=== PATIENT | female | born 1995 | race Caucasian/White ===

== ENCOUNTER 2017-04-25 09:36 | Emergency (ER) | payer BC, MEDICAID ==
[~2017-04-25] VITALS: Ht 165.1 cm; Wt 64.4 kg
[~2017-04-25 09:36] MED LIST: ACET-2047 PO; CIPR500T4 PO; IBUP-1542 PO
[2017-04-25 09:38] VITALS: Ht 165.1 cm; Wt 64.4 kg
[2017-04-25] MEDS ORDERED: KETOROLAC 30 MG INJ IM STA (09:54)
[2017-04-25] MEDS ORDERED: ONDANSETRON (ODT) 4 MG TAB ODT STA (09:54)
--- NOTE | 2017-04-25 09:57 | ERD ---
ER Documentation Chief Complaint Chief Complaint pt had abd pain last night and today it radiates to the back, vomitting HPI 21-year-old female comes in with left-sided flank pain with nausea vomiting that started last night. This patient states that she had some abdominal pain in the lower abdomen now is in her back, she reports 2 episodes of nonbloody nonbilious emesis. She attempted to take ibuprofen but she had vomited the medication. Pain is achy, localized, and no change with movement. She denies any trauma, saddle anesthesia loss of bowel bladder function. The patient denies fevers or chills. ROS All systems reviewed and are negative except as per history of present illness. Medications Home Meds Active Scripts Tamsulosin Hcl* (Flomax*) 0.4 Mg Cap.er.24h, 0.4 MG PO BID, #30 CAP Prov:GERALDINE HOGAN PA-C 04/25/17 Ibuprofen* (Motrin*) 800 Mg Tab, 800 MG PO Q6, #30 TAB Prov:GERALDINE HOGAN PA-C 04/25/17 Hydrocodone/Acetaminophen ([place] 5-325 Tablet) 1 Each Tablet, 1 TAB PO Q6H Y for PAIN, #7 TAB Prov:GERALDINE HOGAN PA-C 04/25/17 Acetaminophen* (Acetaminophen*) 650 Mg Tablet, 650 MG PO Q4H Y for PAIN AND OR ELEVATED TEMP, #15 TAB Prov:TONYAMEDARDO 11/26/14 Ibuprofen* (Motrin*) 600 Mg Tab, 600 MG PO Q6H Y for PAIN, #15 TAB Prov:CHO,MEDARDO 11/26/14 Ciprofloxacin Hcl* (Ciprofloxacin Hcl*) 500 Mg Tablet, 500 MG PO BID for 7 Days , TAB Prov:CHO,MEDARDO 11/26/14 Allergies Allergies: Coded Allergies: No Known Allergy (Unverified , 11/26/14) PMhx/Soc History of Surgery: No Anesthesia Reaction: No Hx Neurological Disorder: No Hx Respiratory Disorders: No Hx Cardiac Disorders: No Hx Psychiatric Problems: No Hx Miscellaneous Medical Probl: No Hx Alcohol Use: No Hx Substance Use: No Hx Tobacco Use: No Physical Exam Vitals Vital Signs Date Time Temp Pulse Resp B/P Pulse Ox O2 Delivery O2 Flow Rate FiO2 04/25/17 09:38 98.8 56 19 137/62 99 Physical Exam General: Well-developed, well-nourished. The patient appears in no acute distress. HEENT: Head is normocephalic, atraumatic. No scleral icterus. Neck: Supple. Nontender. Lungs: Clear to auscultation. Normal air movement. Heart: Regular rate and rhythm. S1 and S2 are normal. No murmurs, gallops, or rubs. Abdomen: Soft, nontender, nondistended. Bowel sounds are normoactive. Back: No midline tenderness, no rashes, no CVA tenderness. Extremities: No clubbing or cyanosis. Normal pulses. Moving extremities x 4. No weakness. Neurologic: Alert and oriented 3. No focal deficits. Skin: Normal turgor. No rash or lesions. Result Diagram: 04/25/17 1055 04/25/17 1055 Results 24 hrs Laboratory Tests Test 04/25/17 10:00 04/25/17 10:55 Urine Color YELLOW Urine Clarity SLIGHTLY CLOUDY Urine pH 5.0 Urine Specific [place] 1.021 Urine Ketones NEGATIVEmg/dL Urine Nitrite NEGATIVEmg/dL Urine Bilirubin NEGATIVEmg/dL Urine Urobilinogen NEGATIVEmg/dL Urine Leukocyte Esterase NEGATIVELeu/ul Urine Microscopic RBC 147/HPF Urine Microscopic WBC 5/HPF Urine Squamous Epithelial Cells MODERATE/HPF Urine Mucus MANY/HPF Urine Hemoglobin 3+mg/dL Urine Glucose NEGATIVEmg/dL Urine Total Protein 1+mg/dl Urine Test NEGATIVE White Blood Count 10.110^3/ul Red Blood Count 4.2510^6/ul Hemoglobin 13.2g/dl Hematocrit 39.4% Mean Corpuscular Volume 92.7fl Mean Corpuscular Hemoglobin 31.1pg Mean Corpuscular Hemoglobin Concent 33.5g/dl Red Cell Distribution Width 11.8% Platelet Count 55580^3/UL Mean Platelet Volume 10.1fl Neutrophils % 81.6% Lymphocytes % 12.0% Monocytes % 5.7% Eosinophils % 0.2% Basophils % 0.2% Nucleated Red Blood Cells % 0.0/100WBC Neutrophils # 8.310^3/ul Lymphocytes # 1.210^3/ul Monocytes # 0.610^3/ul Eosinophils # 0.010^3/ul Basophils # 0.010^3/ul Nucleated Red Blood Cells # 0.010^3/ul Sodium Level 143mmol/L Potassium Level 4.5mmol/L Chloride Level 105mmol/L Carbon Dioxide Level 27mmol/L Anion Gap 16 Blood Urea Nitrogen 10mg/dl Creatinine 0.68mg/dl Glucose Level 103mg/dl Calcium Level 9.5mg/dl Total Bilirubin 0.5mg/dl Direct Bilirubin 0.00mg/dl Indirect Bilirubin 0.5mg/dl Aspartate Amino Transf (AST/SGOT) 20IU/L Alanine Aminotransferase (ALT/SGPT) 34IU/L Alkaline Phosphatase 53IU/L Total Protein 7.3g/dl Albumin 4.0g/dl Globulin 3.30g/dl Albumin/Globulin Ratio 1.21 Lipase 133U/L Current Medications Medications (Trade) Dose Ordered Sig/Johanne Route PRN Reason Start Time Stop Time Status Last Admin Dose Admin Ondansetron HCl (Zofran Odt) 4 mg ONCE STAT ODT 04/25/17 09:54 04/25/17 09:55 DC 04/25/17 10:11 Ketorolac Tromethamine (Toradol) 30 mg ONCE STAT IM 04/25/17 09:54 04/25/17 09:55 DC 04/25/17 10:10 DIAGNOSTIC IMAGING REPORT Patient: MELISSA COATES : 1995 Age: 21 Sex: F MR #: [id number] DOS: 04/25/17 1203 Ordering MD: GERALDINE HOGAN PA-C Location: [facility] Room/Bed: PROCEDURE: CT ABDOMEN AND PELVIS WITHOUT CONTRAST. CLINICAL INDICATION: Left flank pain TECHNIQUE: CT scan of the abdomen and pelvis without contrast was performed on a multidetector high-resolution CT scanner. The patient was scanned without intravenous contrast. Coronal and sagittal reformatted images were obtained from the axial source images. Images were reviewed on a high-resolution PACS workstation. The total exam CTDI equals 6.8 mGy and the total exam DLP equals 386.4 mGy-cm. One or more of the following dose reduction techniques were used: Automated exposure control. Adjustment of the mA and/or kV according to patient size. Use of iterative reconstruction technique. DICOM images are available COMPARISON: None FINDINGS: CT abdomen: The lung bases are clear. The heart size is within limits. There is no significant pericardial effusion. Hepatic morphology is within normal limits. No gross contour deforming masses. The gallbladder is within normal limits. No evidence of intrahepatic or extrahepatic biliary dilatation. The spleen and pancreas are within normal limits. Both adrenal glands are within normal limits. Both kidneys are normal anatomic position. Punctate 1-2 mm stones are noted within both kidneys. There is borderline left-sided hydronephrosis and there is a small 2 mm stone within the left UVJ. The visualized GI tract demonstrate normal caliber loops of small and large bowel. No evidence of bowel obstruction. The appendix is within normal limits. The unenhanced aorta is unremarkable. No significant retroperitoneal lymphadenopathy. CT pelvis: The bladder is again identified and there is a small 2 mm within the left UVJ. The uterus is mildly prominent, containing fluid. There is a right cystic adnexa measuring 4.5 cm. The visualized osseous structures appears to be within normal limits. IMPRESSION: 1. THERE IS BORDERLINE LEFT-SIDED HYDRONEPHROSIS AND THERE IS A 2 MM STONE WITHIN THE LEFT UVJ. 2. Bilateral nonobstructing 1-2 mm nephrolithiasis. 3. No evidence of bowel obstruction. The appendix is within normal limits. 4. Prominent uterus, containing fluid within the endometrial canal and 4.5 cm right cystic adnexa, probably physiologic within normal limits. RPTAT: EE Physician Eldon Date Time Electronically viewed and signed by Physician Eldon on 04/25/2017 12:46 JL/ CC: GERALDINE HOGAN PA-C Procedures/[facility] 21-year-old female presents with back pain on the left side with nausea vomiting , the patient does not have evidence of pyelonephritis, she did have a significant amount of red blood cells in her urinalysis and therefore further workup was initiated. Labs show normal kidney function, and there is no elevated white blood cell count or fever or chills or signs of sepsis. Her CT of the abdomen and pelvis shows a stone at is in the UVJ with borderline hydronephrosis. She also has renal stones that are not symptomatic at this time. She was instructed of these findings, given the multiple stones I have advised her to follow-up with her doctor to get a referral to see urology. She may do this outpatient as she is not septic, and there are no signs of infection , or renal insufficiency. Departure Diagnosis: Primary Impression: Ureteral calculus, left Condition: Good GERALDINE HOGAN PA-C Apr 25, 2017 09:57
[2017-04-25 10:24] LABS: ADD UMIC YES; UR ASCORBIC ACID NEGATIVE (NEGATIVE); UR BILIRUBIN (Dip) NEGATIVE (NEGATIVE); UR BLOOD (Dip) 3+ mg/dL (NEGATIVE); UR CLARITY SLIGHTLY CLOUDY (CLEAR); UR COLOR YELLOW (YELLOW); UR GLUCOSE (Dip) NEGATIVE (NEGATIVE); UR KETONES (Dip) NEGATIVE (NEGATIVE); UR LEUKOCYTE ESTERASE (Dip) NEGATIVE Leu/ul (NEGATIVE); UR MUCUS MANY /HPF (NONE SEEN); UR NITRITE (Dip) NEGATIVE (NEGATIVE); UR RBC 147 /HPF (0-5); UR SPECIFIC GRAVITY (Dip) 1.021 (1.003-1.030); UR SQUAMOUS EPITHELIAL CELL MODERATE /HPF (FEW); UR TOTAL PROTEIN (Dip) 1+ mg/dl (NEGATIVE); UR UROBILINOGEN (Dip) NEGATIVE (NEGATIVE)
[2017-04-25 11:11] LABS: BASOPHILS % 0.2 % (0.0-2.0); EOSINOPHILS % 0.2 % (0.0-7.0); HEMATOCRIT 39.4 % (37.0-47.0); HEMOGLOBIN 13.2 g/dl (12.0-16.0); LYMPHOCYTES # 1.2 10^3/ul (0.8-2.9); MEAN CORPUSCULAR HEMOGLOBIN 31.1 pg (29.0-33.0); MEAN CORPUSCULAR HGB CONC 33.5 g/dl (32.0-37.0); MEAN CORPUSCULAR VOLUME 92.7 fl (72.0-104.0); MEAN PLATELET VOLUME 10.1 fl (7.4-10.4); MONOCYTE # 0.6 10^3/ul (0.3-0.9); MONOCYTES % 5.7 % (0.0-13.0); NEUTROPHIL # 8.3 10^3/ul (1.6-7.5); NEUTROPHILS % 81.6 % (30.0-74.0); PLATELET COUNT 251 10^3/UL (140-415); RED BLOOD COUNT 4.25 10^6/ul (4.20-5.40); RED CELL DISTRIBUTION WIDTH 11.8 % (11.5-14.5); WHITE BLOOD COUNT 10.1 10^3/ul (4.8-10.8)
[2017-04-25 11:35] LABS: ALBUMIN/GLOBULIN RATIO 1.21; BILIRUBIN,INDIRECT 0.5 mg/dl (0-1.1); BILIRUBIN,TOTAL 0.5 mg/dl (0.2-1.3); CALCIUM 9.5 mg/dl (8.4-10.2); CREATININE 0.68 mg/dl (0.44-1.00); POTASSIUM 4.5 mmol/L (3.5-5.1); TOTAL PROTEIN 7.3 g/dl (6.1-8.1)
--- NOTE | 2017-04-25 12:46 | RADRPT ---
PROCEDURE: CT ABDOMEN AND PELVIS WITHOUT CONTRAST. CLINICAL INDICATION: Left flank pain TECHNIQUE: CT scan of the abdomen and pelvis without contrast was performed on a multidetector hig h-resolution CT scanner. The patient was scanned without intravenous contrast. Coronal and sagittal reformatted images were obtained from the axial source images. Images were reviewed on a high-resol [employer] PACS workstation. The total exam CTDI equals 6.8 mGy and the total exam DLP equals 386.4 mGy-c m. One or more of the following dose reduction techniques were used: Automated exposure control. Adjustment of the mA and/or kV according to patient size. Use of iterative reconstruction technique. DICOM images are available COMPARISON: None FINDINGS: CT abdomen: The lung bases are clear. The heart size is within limits. There is no significant pericardial effus ion. Hepatic morphology is within normal limits. No gross contour deforming masses. The gallbladder is wi thin normal limits. No evidence of intrahepatic or extrahepatic biliary dilatation. The spleen and pancreas are within normal limits. Both adrenal glands are within normal limits. Both kidneys are normal anatomic position. Punctate 1-2 mm stones are noted within both kidneys. The re is borderline left-sided hydronephrosis and there is a small 2 mm stone within the left UVJ. The visualized GI tract demonstrate normal caliber loops of small and large bowel. No evidence of cole wel obstruction. The appendix is within normal limits. The unenhanced aorta is unremarkable. No significant retroperitoneal lymphadenopathy. CT pelvis: The bladder is again identified and there is a small 2 mm within the left UVJ. The uterus is mildly prominent, containing fluid. There is a right cystic adnexa measuring 4.5 cm. The visualized osseous structures appears to be within normal limits. IMPRESSION: 1. THERE IS BORDERLINE LEFT-SIDED HYDRONEPHROSIS AND THERE IS A 2 MM STONE WITHIN THE LEFT UVJ. 2. Bilateral nonobstructing 1-2 mm nephrolithiasis. 3. No evidence of bowel obstruction. The appendix is within normal limits. 4. Prominent uterus, containing fluid within the endometrial canal and 4.5 cm right cystic adnexa, p robably physiologic within normal limits. RPTAT: EE Jasony Lue, Physician Date Time Electronically viewed and signed by Tsering Newman Physician on 04/25/2017 12:46 JL/
[2017-04-25] MEDS ORDERED: IBUP800T25 PO (12:53)
[2017-04-25] MEDS ORDERED: HYDR-906 PO (12:53)
[2017-04-25] MEDS ORDERED: TAMS-14 PO (12:53)
[2017-04-25 13:15] VITALS: BP 116/80; PULSE 52; RESP 18; TEMP 98.8
== END 2017-04-25 13:17 | disposition home or self-care (01) ==
LOC: FTE 09:36
DX: N20.1 Calculus of ureter (principal)
CPT/HCPCS: 36415; 74176; 80053; 81001; 83690; 84703; 85025; 96372; J1885; Z7502; Z7610